=== PATIENT | male | born 1970 | race American Indian/Alaskan Native ===

== ENCOUNTER 2021-07-24 13:36 | Emergency (ER) | payer SELFPAY ==
[2021-07-24 15:26] LABS: Basophils # (Auto) 0.1 K/mm3 (0.0-0.1); Basophils % (Auto) 1.1 % (0.0-1.8); Eosinophils # (Auto) 0.1 K/mm3 (0.0-0.4); Eosinophils % (Auto) 1.5 % (0.0-4.3); Hematocrit 48.3 % (35.5-45.6); Hemoglobin 15.9 gm/dl (11.8-15.2); Lymphocytes # (Auto) 2.1 K/mm3 (1.2-5.4); Mean Corpuscular HGB Conc 33 % (32-34); Mean Corpuscular Volume 87 fl (84-94); Monocytes # (Auto) 0.5 K/mm3 (0.0-0.8); Monocytes % (Auto) 7.7 % (0.0-7.3); Platelet Count 246 K/mm3 (140-440); Red Blood Count 5.57 M/mm3 (3.65-5.03); Red Cell Distribution Width 14.3 % (13.2-15.2)
[2021-07-24 15:52] LABS: Alanine Aminotransferase 67 units/L (7-56); Albumin 4.8 g/dL (3.9-5); BUN/Creatinine Ratio 12; Blood Urea Nitrogen 11 mg/dL (9-20); Calcium 9.9 mg/dL (8.4-10.2); Hemolysis Index 6
[2021-07-24 20:44] LABS: Bilirubin,Urine NEG (Negative); Blood,Urine SM (Negative); Color,Urine Yellow (Yellow); Urobilinogen,Urine < 2.0 mg/dL (<2.0); WBC,Urine < 1.0 /HPF (0.0-6.0)
[2021-07-24 20:50] LABS: RBC,Urine < 1.0 /HPF (0.0-6.0)
[2021-07-24 20:53] LABS: Amphetamine Screen,Urine Negative; Benzodiazepines Screen,Urine Negative; Cannabinoid Screen,Urine Negative; Cocaine Screen,Urine Negative; Methadone Screen,Urine Negative; Opiate Screen,Urine Negative
[2021-07-24] MEDS ORDERED: ONDANSETRON 4 MG/2 ML INJ IV ONE (21:26)
[2021-07-24] MEDS ORDERED: SODIUM CHLORIDE 0.9% 1000 ML 1,000 ML IV ONE (21:26)
[2021-07-24] MEDS ORDERED: LORazepam 2 MG/ML VIAL IV ONE (21:28)
--- NOTE | 2021-07-24 21:34 | Emergency Department Report ---
ED Abdominal Pain HPI - General Chief Complaint: Medical Clearance Stated Complaint: HEART RATE UP, ABD PAIN PUI?: No Time Seen by Provider: 07/24/21 21:05 Source: patient Mode of arrival: Ambulatory Limitations: No Limitations - History of Present Illness Initial Comments: Patient is a 51-year-old male with history of alcoholism presenting to ED with complaint of epigastric discomfort for the past 2 weeks with associated nausea and vomiting. States he has been experiencing withdrawal symptoms for the past several days requiring him to continue drinking. He is requesting rehabilitation/detox. He is unable to characterize the quality of his pain. The pain radiates to his back. No modifying factors. MD Complaint: abdominal pain Severity: moderate Severity scale (0 -10): 10 Quality: other (Unable to describe) Consistency: intermittent Associated Symptoms: nausea, vomiting. denies: fever, chills - Related Data Allergies Allergy/AdvReac Type Severity Reaction Status Date / Time tramadol Allergy Itching Verified 07/24/21 13:51 ED Review of Systems ROS: Stated complaint: HEART RATE UP, ABD PAIN Other details as noted in HPI Constitutional: denies: chills, fever Respiratory: denies: cough, shortness of breath, wheezing Cardiovascular: denies: chest pain, palpitations Endocrine: no symptoms reported Gastrointestinal: as per HPI, abdominal pain, nausea, vomiting Musculoskeletal: denies: back pain, joint swelling Skin: denies: rash, lesions Neurological: denies: headache, weakness Psychiatric: denies: anxiety, depression Hematological/Lymphatic: denies: easy bleeding, easy bruising ED Past Medical Hx - Past Medical History Previous Medical History?: Yes Hx Hypertension: Yes Hx Asthma: Yes - Surgical History Past Surgical History?: No - Social History Smoking Status: Never Smoker Substance Use Type: Alcohol ED Physical Exam - General Limitations: No Limitations General appearance: alert, in no apparent distress - Head Head exam: Present: atraumatic, normocephalic - Eye Eye exam: Present: normal appearance, EOMI - Respiratory Respiratory exam: Present: normal lung sounds bilaterally. Absent: respiratory distress - Cardiovascular Cardiovascular Exam: Present: regular rate, normal rhythm. Absent: systolic murmur, diastolic murmur, rubs, gallop - GI/Abdominal GI/Abdominal exam: Present: soft, tenderness (Tenderness in epigastric region), normal bowel sounds. Absent: distended, guarding, rebound, mass, bruit, pulsatile mass, hernia - Rectal Rectal exam: Present: deferred - Extremities Exam Extremities exam: Present: normal inspection - Neurological Exam Neurological exam: Present: alert, oriented X3, CN II-XII intact - Psychiatric Psychiatric exam: Present: normal affect, normal mood - Skin Skin exam: Present: warm, dry, intact, normal color. Absent: rash ED Course Vital Signs 07/24/21 07/24/21 13:54 20:34 Temperature 98.5 F 97.9 F Pulse Rate 107 H 100 H Respiratory 20 20 Rate Blood Pressure 149/92 Blood Pressure 153/104 [Right] O2 Sat by Pulse 100 100 Oximetry ED Medical Decision Making - Lab Data Result diagrams: 07/24/21 15:05 07/24/21 15:05 - Medical Decision Making Patient given 1 L normal saline bolus along with IV morphine and Ativan. Laboratory evaluation reveals normal white count. LFTs and lipase are within normal range. Suspect possibly alcoholic gastritis as the cause for patient's symptoms. He is stable for discharge. We will provide him with resources for outpatient rehabilitation services. Critical care attestation.: If time is entered above; I have spent that time in minutes in the direct care of this critically ill patient, excluding procedure time. ED Disposition Clinical Impression: Acute alcoholic gastritis Disposition: 01 HOME / SELF CARE / HOMELESS Is pt being admited?: No Does the pt Need Aspirin: No Condition: Stable Instructions: Gastritis, Adult, [id number] Referrals: GIL HEART MD [Primary Care Provider] - 3-5 Days Time of Disposition: 22:59 Print Language: KOREAN
[2021-07-24 22:14] LABS: INR 1.03 (0.87-1.13)
[2021-07-24 22:19] LABS: Albumin 4.3 g/dL (3.9-5); Bilirubin,Direct 0.3 mg/dL (0-0.2)
[2021-07-24 23:09] VITALS: BP 138/75
--- NOTE | 2021-07-25 20:27 | Electrocardiograph Report ---
[facility] Test Date: 2021-07-24 Test Time: 14:24:04 Pat Name: JACK PEREZ Department: Room: Gender: M Inspector Eyeglass: CLEMENT : 1970 Requested By: BOBBI BROWNE Order Number: [id number] Reading MD: Marisol White Measurements Intervals Elizabeth Rate: 97 P: 52 [place]: 146 QRS: 53 QRSD: 79 T: 45 QT: 341 QTc: 433 Interpretive Statements Sinus rhythm No previous ECG available for comparison Electronically Signed On 07-25-2021 20:26:29 EDT by Marisol White
== END 2021-07-24 23:09 | disposition home or self-care (01) ==
LOC: ED 13:36
DX: K29.20 Alcoholic gastritis without bleeding (principal); I10 Essential (primary) hypertension; J45.909 Unspecified asthma, uncomplicated; Z91.09 Other allergy status, other than to drugs and biological substances; Z79.899 Other long term (current) drug therapy
CPT/HCPCS: 36415; 80053; 80076; 80307; 81001; 83690; 84484; 85025; 85610; 93005; 96361; 96374; 96375; 99283; J2060; J2405; J7030; 80320; Q0162; G0480

== ENCOUNTER 2021-08-19 05:23 | Emergency (ER) | payer SELFPAY ==
[2021-08-19 08:11] LABS: Hematocrit 44.2 % (35.5-45.6); Hemoglobin 14.9 gm/dl (11.8-15.2); Mean Corpuscular HGB Conc 34 % (32-34); Mean Corpuscular Volume 86 fl (84-94); Platelet Count 242 K/mm3 (140-440); Red Blood Count 5.13 M/mm3 (3.65-5.03); Red Cell Distribution Width 14.8 % (13.2-15.2)
[2021-08-19 08:34] LABS: Alanine Aminotransferase 53 units/L (7-56); Albumin 4.9 g/dL (3.9-5); BUN/Creatinine Ratio 12; Blood Urea Nitrogen 11 mg/dL (9-20); Calcium 9.9 mg/dL (8.4-10.2); Hemolysis Index 24
[2021-08-19] MEDS ORDERED: diphenhydrAMINE 50 MG/ML VIAL IV ONE (09:06)
[2021-08-19] MEDS ORDERED: METOCLOPRAMIDE 10 MG/2 ML INJ IV ONE (09:06)
[2021-08-19] MEDS ORDERED: SODIUM CHLORIDE 0.9% 1000 ML 1,000 ML IV ONE (09:06)
[2021-08-19] MEDS ORDERED: MORPHINE 4 MG/1 ML INJ IV ONE (09:06)
[2021-08-19] MEDS ORDERED: FAMOTIDINE 20 MG/2 ML INJ IV ONE (09:07)
--- NOTE | 2021-08-19 10:23 | Cat Scan Report ---
CT ABDOMEN AND PELVIS WITH IV CONTRAST INDICATION: abdominal pain. COMPARISON: None available. TECHNIQUE: All CT scans at this facility use dose modulation, automated exposure control, iterative reconstructi on or weight based dosing, when appropriate, to reduce radiation dose to as low as reasonably achieva ble. FINDINGS: Lung Bases: No significant abnormality. Skeletal System: No acute abnormality. ABDOMEN: Liver: Diffuse steatosis. No acute finding. Gallbladder: No significant abnormality. Bile Ducts: No significant abnormality. Adrenals: No significant abnormality. Right Kidney: No significant abnormality. Left Kidney: No significant abnormality. Pancreas: No significant abnormality. Spleen: No significant abnormality. Upper GI tract: No significant abnormality. Lymph Nodes: No significant adenopathy. Aorta: No significant abnormality. Additional Findings: No significant abnormality. PELVIS: Colon: No acute abnormality. Diverticulosis is noted. Urinary Bladder and Distal Ureters: No significant abnormality. Appendix: No significant abnormality. Lymph Nodes: No significant adenopathy. Additional Findings: None. IMPRESSION: 1. No acute process in the abdomen or pelvis. 2. Incidental findings, as above. Signer Name: Montez West MD Signed: 08/19/2021 10:19 AM Workstation Name: [id number]
[2021-08-19 12:45] LABS: Bilirubin,Urine NEG (Negative); Blood,Urine SM (Negative); Color,Urine Straw (Yellow); Mucus,Urine FEW /HPF; Protein,Urine <15 mg/dL mg/dL (Negative); Urobilinogen,Urine < 2.0 mg/dL (<2.0)
--- NOTE | 2021-08-19 13:15 | Emergency Department Report ---
ED Abdominal Pain HPI - General Chief Complaint: Abdominal Pain Stated Complaint: ABD PAIN & DIZZY Time Seen by Provider: 08/19/21 08:53 Source: patient Mode of arrival: Ambulatory Limitations: No Limitations - History of Present Illness Initial Comments: 51-year-old black male with a past medical history of hypertension, asthma, and ulcers presents to the emergency department for evaluation of 2-day history of abdominal pain. He states that he has a history of alcohol abuse and about 2- 1/2 weeks ago he started back drinking then a few days later he developed the abdominal pain. He states that pain initially was bearable but over the last few days it has become much worse. He states that yesterday he developed vomiting, back pain, and chills. He denies fever, penile discharge, and diarrhea. MD Complaint: abdominal pain -: Gradual, week(s) (To) Location: epigastric Radiation: none Migration to: no migration Severity: severe Severity scale (0 -10): 10 Quality: aching, burning Consistency: constant Associated Symptoms: nausea, vomiting, chills. denies: diarrhea, fever, dysuria, hematemesis, hematochezia, melena, hematuria, anorexia, syncope - Related Data Previous Rx's Medication Instructions Recorded Last Taken Type Famotidine [Pepcid] 20 mg PO BID #30 tablet 08/19/21 Unknown Rx Ondansetron [Zofran Odt] 4 mg PO Q8HR PRN #12 tab.rapdis 08/19/21 Unknown Rx Allergies Allergy/AdvReac Type Severity Reaction Status Date / Time tramadol Allergy Itching Verified 07/24/21 13:51 ED Review of Systems ROS: Stated complaint: ABD PAIN & DIZZY Other details as noted in HPI Comment: All other systems reviewed and negative Constitutional: chills. denies: fever ENT: denies: congestion Respiratory: denies: cough, shortness of breath, SOB with exertion, SOB at rest, wheezing Cardiovascular: denies: chest pain, palpitations Gastrointestinal: abdominal pain, nausea, vomiting. denies: diarrhea, hematemesis, melena, hematochezia Genitourinary: denies: urgency, dysuria, frequency, hematuria, discharge, testicular pain Skin: denies: rash, lesions Neurological: denies: headache, weakness, numbness, paresthesias, abnormal gait ED Past Medical Hx - Past Medical History Hx Hypertension: Yes Hx Asthma: Yes - Social History Smoking Status: Never Smoker Substance Use Type: Alcohol - Medications Home Medications: Home Medications Medication Instructions Recorded Confirmed Last Taken Type Famotidine [Pepcid] 20 mg PO BID #30 tablet 08/19/21 Unknown Rx Ondansetron [Zofran Odt] 4 mg PO Q8HR PRN #12 tab.rapdis 08/19/21 Unknown Rx ED Physical Exam - General Limitations: No Limitations General appearance: alert, in no apparent distress - Head Head exam: Present: atraumatic, normocephalic - Eye Eye exam: Present: normal appearance. Absent: conjunctival injection - Neck Neck exam: Present: normal inspection, full ROM. Absent: tenderness, lymphadenopathy - Respiratory Respiratory exam: Present: normal lung sounds bilaterally, chest wall tenderness. Absent: respiratory distress, wheezes, rales, rhonchi, stridor - Cardiovascular Cardiovascular Exam: Present: tachycardia, normal heart sounds - GI/Abdominal GI/Abdominal exam: Present: soft, tenderness (Epigastric), normal bowel sounds. Absent: distended, guarding, rebound, rigid - Extremities Exam Extremities exam: Present: normal inspection, normal capillary refill. Absent: full ROM, tenderness, pedal edema, joint swelling, calf tenderness - Back Exam Back exam: Present: normal inspection, tenderness. Absent: CVA tenderness (R), CVA tenderness (L), paraspinal tenderness, vertebral tenderness - Neurological Exam Neurological exam: Present: alert, oriented X3, normal gait - Psychiatric Psychiatric exam: Present: normal affect, normal mood - Skin Skin exam: Present: warm, dry, intact, normal color ED Course Vital Signs 08/19/21 08/19/21 05:26 14:11 Temperature 97.7 F 98.2 F Pulse Rate 113 H 66 Respiratory 18 16 Rate Blood Pressure 186/100 Blood Pressure 124/78 [Right] O2 Sat by Pulse 97 98 Oximetry - Reevaluation(s) Reevaluation #1: 08/19/21 13:12 Nausea vomiting and abdominal pain resolved. Patient states that he feels much better. ED Medical Decision Making - Lab Data Result diagrams: 08/19/21 08:02 08/19/21 08:02 - Radiology Data Radiology results: report reviewed CT abdomen and pelvis: FINDINGS: Lung Bases: No significant abnormality. Skeletal System: No acute abnormality. ABDOMEN: Liver: Diffuse steatosis. No acute finding. Gallbladder: No significant abnormality. Bile Ducts: No significant abnormality. Adrenals: No significant abnormality. Right Kidney: No significant abnormality. Left Kidney: No significant abnormality. Pancreas: No significant abnormality. Spleen: No significant abnormality. Upper GI tract: No significant abnormality. Lymph Nodes: No significant adenopathy. Aorta: No significant abnormality. Additional Findings: No significant abnormality. PELVIS: Colon: No acute abnormality. Diverticulosis is noted. Urinary Bladder and Distal Ureters: No significant abnormality. Appendix: No significant abnormality. Lymph Nodes: No significant adenopathy. Additional Findings: None. IMPRESSION: 1. No acute process in the abdomen or pelvis. 2. Incidental findings, as above. - Medical Decision Making 51-year-old black male with a past medical history of hypertension, asthma, and ulcers presents to the emergency department for evaluation of 2-day history of abdominal pain. He states that he has a history of alcohol abuse and about 2- 1/2 weeks ago he started back drinking then a few days later he developed the abdominal pain. He states that pain initially was bearable but over the last few days it has become much worse. He states that yesterday he developed vomiting, back pain, and chills. He denies fever, penile discharge, and diarrhea. No gross abnormalities noted on exam. Symptoms improved with medication. Patient was given 1 L of IV fluids and tachycardia resolved. CT scan without any acute abnormalities noted. Patient will be discharged home with prescription for Zofran and Pepcid to use as directed. He is advised to follow- up with his primary care provider or GI for further evaluation and management. He verbalized understanding of and agreement with plan of care. Critical care attestation.: If time is entered above; I have spent that time in minutes in the direct care of this critically ill patient, excluding procedure time. ED Disposition Clinical Impression: Abdominal pain Qualifiers: Abdominal location: generalized Qualified Code(s): R10.84 - Generalized abdom inal pain Disposition: HOME / SELF CARE / HOMELESS Is pt being admited?: No Does the pt Need Aspirin: No Condition: Stable Instructions: Abdominal Pain, Adult, [id number] Additional Instructions: Take medications as prescribed. Follow-up with primary care provider if no improvement or worsening symptoms. Return to the emergency department as needed. Prescriptions: Famotidine [Pepcid] 20 mg PO BID #30 tablet Ondansetron [Zofran Odt] 4 mg PO Q8HR PRN #12 tab.rapdis PRN Reason: Nausea And Vomiting Referrals: FRANKLYN FABIAN MD [Staff Physician] - 3-5 Days GWYN MILES MD [Staff Physician] - 3-5 Days Forms: Work/School Release Form(ED) Time of Disposition: 13:14
[2021-08-19 14:12] VITALS: BP 124/78
== END 2021-08-19 14:12 | disposition home or self-care (01) ==
LOC: ED 05:23
DX: R10.9 Unspecified abdominal pain (principal); I10 Essential (primary) hypertension; J45.909 Unspecified asthma, uncomplicated; Z79.899 Other long term (current) drug therapy
CPT/HCPCS: 36415; 74177; 80053; 81001; 83690; 85027; 96361; 96374; 96375; 99284; J1200; J2270; J2765; J3490; J7030; Q9967